=== PATIENT | female | born 1950 | race Caucasian/White ===

== ENCOUNTER → 2016-06-16 09:38 | Day surgery (SDC) | payer MEDICARE, BC ==
[~2016-06-16 09:38] MED LIST: Onabotulinimtoxina 100 UNITS* VIAL IM ONE
--- NOTE | 2016-06-17 07:57 | OP ---
DATE OF OPERATION: 06/16/16 - [facility] DATE OF : 48 SURGEON: Eddi Ron MD ANESTHESIA: Local PRE-OP DIAGNOSIS: Spasmodic dysphonia. POST-OP DIAGNOSIS: OPERATIVE PROCEDURE: EMG-guided Botox injection of the right true vocal cord under local anesthesia. DESCRIPTION OF PROCEDURE: The patient was done in the local room in same day. Her head was extended. The landmarks were demarcated with pen. Her neck was prepped with alcohol, 10 units of Botox was loaded into the EMG injection system and under EMG guidance, it was inserted into the right vocal cord with the appropriate muscle action potential. I injected the 10 units of Botox. The patient tolerated the procedure, there were no complications. [id number]/[facility] #: [id number] MINNIE
== END | disposition home or self-care (01) ==
LOC: OR 09:38
PROVIDERS: ATTEND Otolaryngology
DX: J38.3 Other diseases of vocal cords (principal); J38.7 Other diseases of larynx
CPT/HCPCS: J0585

== ENCOUNTER 2016-10-04 08:11 | Day surgery (SDC) | payer MEDICARE, BC ==
[~2016-10-04 08:11] MED LIST changes: -Onabotulinimtoxina 100 UNITS* VIAL IM ONE; +Onabotulinimtoxina 100 UNITS* VIAL ONE
[2016-10-04 09:04] VITALS: BP 149/88
--- NOTE | 2016-10-04 10:32 | OP ---
DATE OF OPERATION: 10/04/16 - [facility] DATE OF : 48 SURGEON: Gary Ron MD ANESTHESIA: No anesthesia used. PRE-OP DIAGNOSIS: Spasmodic dysphonia. POST-OP DIAGNOSIS: Spasmodic dysphonia. OPERATIVE PROCEDURE: EMG-guided Botox injection to the vocal cords. DESCRIPTION OF PROCEDURE: The patient was taken to the Local room. The head was extended. Her cricoid cartilage and injection sites were demarcated and wiped with alcohol. Botox was loaded into the EMG Botox needle, and inserted through the skin and the cricothyroid membrane into the left vocal cord. I injected 5 units of Botox, confirming muscle action potentials with phonation of "E"; and then on the right side I injected 10 units of Botox for a total of 15 units. Therefore, 85 units of Botox were wasted. The patient tolerated the procedure well. There were no complications. [id number]/[facility] #: [id number] MTDD
== END 2016-10-04 09:06 | disposition home or self-care (01) ==
LOC: OR 08:11
PROVIDERS: ATTEND Otolaryngology
DX: R49.0 Dysphonia (principal); J38.3 Other diseases of vocal cords
CPT/HCPCS: 64616; 95873; J0585

== ENCOUNTER → 2017-03-07 07:36 | Day surgery (SDC) | payer MEDICARE, BC ==
--- NOTE | 2017-03-07 08:46 | OP ---
DATE OF OPERATION: 03/07/17 - [facility] DATE OF : 48. SURGEON: Eddi Ron MD. ANESTHESIA: No anesthesia was used. PRE-OP DIAGNOSIS: Spasmodic dysphonia. POST-OP DIAGNOSIS: Spasmodic dysphonia. OPERATIVE PROCEDURE: EMG-guided Botox injection into the right vocal cord with 10 units of Botox, and into her left vocal cord with 5 units of Botox. DESCRIPTION OF PROCEDURE: The patient was in the local room and her head was hyperextended. Her cricoid cartilage and injection sites were marked. The Botox was loaded into the EMG injection needle and connected to the EMG machine. The injection was done transcutaneous transcricothyroid membrane. A needle was inserted supero-laterally into initially the right vocal cord with proper EMG potentials. 10 units of Botox were injected. I then repeated this into the left vocal cord where 5 units of Botox were injected. The patient tolerated the procedure well. [id number]/[facility] #: [id number] MTDD
== END | disposition home or self-care (01) ==
LOC: OR 07:36
PROVIDERS: ATTEND Otolaryngology
DX: J38.3 Other diseases of vocal cords (principal); E11.9 Type 2 diabetes mellitus without complications; Z79.84 Long term (current) use of oral hypoglycemic drugs; J38.7 Other diseases of larynx
CPT/HCPCS: J0585

== ENCOUNTER → 2017-10-03 07:34 | Day surgery (SDC) | payer MEDICARE, BC ==
--- NOTE | 2017-10-04 07:07 | OP ---
DATE OF OPERATION: 10/03/17 - [facility] DATE OF : 48 SURGEON: Eddi Ron M.D. ANESTHESIA: Local. PRE-OP DIAGNOSIS: Spasmodic dysphonia. POST-OP DIAGNOSIS: Spasmodic dysphonia. OPERATIVE PROCEDURE: EMG-guided Botox injections into the patient's vocal cords , left and right, under local anesthesia. DESCRIPTION OF PROCEDURE: The patient was in the local room. Her head was extended and skin was prepped with alcohol. Her cricoid cartilage midline were demarcated with the pen and then injected with 1% lidocaine with 1:100,000 epinephrine over her cricothyroid membrane. Using the EMG-guided Botox needle, I inserted the needle through the skin, cricothyroid muscle superolaterally into the vocal cord with the proper EMG muscle potentials. I injected 10 units of Botox into her right vocal cord and 5 units of Botox into her left vocal cord. The patient tolerated this well. No complications. [id number]/[facility] #: [id number] MTDD
== END | disposition home or self-care (01) ==
LOC: OR 07:34
PROVIDERS: ATTEND Otolaryngology
DX: J38.3 Other diseases of vocal cords (principal); J38.7 Other diseases of larynx; E11.9 Type 2 diabetes mellitus without complications; Z79.84 Long term (current) use of oral hypoglycemic drugs
CPT/HCPCS: 64616; 95873; J0585

== ENCOUNTER → 2018-02-06 08:12 | Day surgery (SDC) | payer MEDICARE, BC ==
[~2018-02-06 08:12] MED LIST changes: +Onabotulinimtoxina 100 UNITS* VIAL IM ONE; -Onabotulinimtoxina 100 UNITS* VIAL ONE
[2018-02-06 08:27] VITALS: BP 121/67
--- NOTE | 2018-02-06 22:28 | OP ---
DATE OF OPERATION: 02/06/18 - [facility] DATE OF : 48 SURGEON: Eddi Rno MD PRE-OP DIAGNOSIS: Spasmodic dysphonia. POST-OP DIAGNOSIS: Spasmodic dysphonia. OPERATIVE PROCEDURE: EMG-guided Botox injection with 10 units of Botox in the right vocal cord and 5 units of Botox in the left vocal cord using EMG guidance. DESCRIPTION OF PROCEDURE: The patient's neck was prepped with some alcohol. Her cricothyroid membrane was demarcated and injection sites demarcated. Using EMG guidance, the Botox injection needle was inserted through the skin, through the cricothyroid membrane superolaterally into the respective vocal cord. Proper EMG potentials were heard, and the Botox was injected. Again, initially 10 units in the right vocal cord and then 5 units in the left vocal cord. The patient tolerated this procedure well, no complications. [id number]/[facility] #: [id number] MTDD
== END | disposition home or self-care (01) ==
LOC: OR 08:12
PROVIDERS: ATTEND Otolaryngology
DX: J38.3 Other diseases of vocal cords (principal); J38.7 Other diseases of larynx
CPT/HCPCS: 64616; 95873; J0585

== ENCOUNTER → 2018-09-13 11:15 | Day surgery (SDC) | payer BC, MEDICARE ==
[~2018-09-13 11:15] MED LIST changes: -Onabotulinimtoxina 100 UNITS* VIAL IM ONE; +Onabotulinimtoxina 100 UNITS* VIAL ONE
--- NOTE | 2018-09-13 13:38 | PRO ---
PROCEDURE NOTE: DATE OF PROCEDURE: 09/13/18 PROCEDURE: EMG-guided Botox injection into her vocal cords with 10 units of Botox into the right voc al cord and 5 units of Botox into the left vocal cord. ANESTHESIA: No anesthesia was used. DIAGNOSIS: Spasmodic dysphonia. DESCRIPTION OF PROCEDURE: The patient was in the procedure room with EMG machine with the ground and return electrodes on her. The Botox was loaded into the EMG injection needle, inserted to the skin of the cricothyroid membrane on the right side superolaterally into the right vocal cord. Good EMG m uscle potentials and 10 units of Botox was injected. Unfortunately, as I was doing this, she swallow ed, I am not sure whether I got it all into the vocal cord. On the left side, I reinserted the needl e superolaterally into the left vocal cord, listened to the EMG potentials, and injected 5 units of B otox. The patient tolerated the procedure well with no complications, although I do not know about t he right injection. She has been instructed to call if she does not get the desired effect. [id number]/[facility] #: [id number]
== END | disposition home or self-care (01) ==
LOC: OR 11:15
PROVIDERS: ATTEND Otolaryngology
DX: J38.3 Other diseases of vocal cords (principal)
CPT/HCPCS: 64616; 95873; J0585

== ENCOUNTER → 2019-02-28 09:00 | Day surgery (SDC) | payer MEDICARE ==
--- NOTE | 2019-02-28 16:06 | OP ---
DATE OF OPERATION: 02/28/19 - [facility] DATE OF : 48 SURGEON: Gary Ron MD PRE-OP DIAGNOSIS: Spasmodic dysphonia. PRE-OP DIAGNOSIS: Spasmodic dysphonia. ANESTHESIA: No anesthesia. OPERATIVE PROCEDURE: EMG-guided Botox injection into true vocal cords. DESCRIPTION OF PROCEDURE: This was performed in the local room in same day surgery. The patient has a history of spasmodic dysphonia and she presents today for another EMG-guided Botox injection. Her head was hyperextended. The EMG reference and return electrodes were placed. The Botox was loaded into the EMG injection needle. Initially, the right vocal cord was injected. It was inserted through the skin into the cricothyroid membrane, superolaterally into the right true vocal cord, where 10 units of Botox were injected when I had the proper EMG muscle potentials. The needle was then placed towards the left and 5 units of Botox were injected into the left vocal cord again under EMG guidance. The patient tolerated this well. [id number]/[facility] #: [id number] [facility]
== END | disposition home or self-care (01) ==
LOC: OR 09:00
PROVIDERS: ATTEND Otolaryngology
DX: J38.3 Other diseases of vocal cords (principal); R49.0 Dysphonia; J38.7 Other diseases of larynx
CPT/HCPCS: 64616; 95873; J0585